=== PATIENT | male | born 1960 | race Caucasian/White ===

== ENCOUNTER 2017-02-14 10:04 | Day surgery (SDC) | payer MEDICAID ==
[~2017-02-14 10:04] MED LIST: Metoclopramide 10 MG/2 ML SDV IV PRN; Sodium Chloride 0.9% 1,000 ML IV SCH; Sodium Chloride 0.9% 10 ML Syringe FLUSH PRN
[2017-02-14] MEDS ORDERED: Propofol 200 MG/20 ML SDV ONE (12:45)
[2017-02-14] MEDS ORDERED: Glucagon,Human Recombinant 1 MG Vial ONE (12:45)
[2017-02-14 13:44] VITALS: BP 124/89
--- NOTE | 2017-02-14 20:04 | OR ---
DATE OF OPERATION: 02/14/2017 PREOPERATIVE DIAGNOSIS: Elevated CEA, prior history of colorectal cancer resection. POSTOPERATIVE DIAGNOSES: 1. Transverse colon polyp. 2. Descending colon polyp. 3. Otherwise normal colonoscopy. OPERATION AND SURVEILLANCE: Colonoscopy with snare polypectomy x2. COMPLICATIONS: None. DRAINS: None. SPECIMENS: 1. Transverse colon polyp. 2. Descending colon polyp. ESTIMATED BLOOD LOSS: Minimal. ANESTHESIA: General propofol anesthesia. INDICATION: Mr. Marquis is a 56-year-old gentleman with a prior history of colon cancer resection. He is being followed by yearly surveillance colonoscopy, and he has had a recent elevation in his CEA. CT scan was normal. The above-mentioned procedure was explained. The risks, benefits, complications were explained. The patient understood and agreed, was brought to the operating room. DESCRIPTION OF PROCEDURE: The patient was brought to the operating room, placed in a left lateral decubitus position on the operating room table. Satisfactory general propofol anesthesia was administered. We began by performing a rectal examination, which was within normal limits. I then placed the endoscope by finger introduction into the rectum and subsequently advanced to the level of the cecum. The cecum was identified by the ileocecal valve, the appendiceal orifice as well as the cecal strap. Careful evaluation of the colon was then carried on the withdrawal. In the proximal to mid transverse colon, there was a large sessile polyp, which was removed by cold snare polypectomy. This was a firm appearing by polypoid in nature and was removed in a piecemeal fashion. The fragments were then all suctioned up and completely retrieved, and passed off the permanent histology. Hemostasis appeared satisfactory. Next, careful evaluation of the remainder of the colon revealed a small single nodular appearing semi-pedunculated polyp in the descending colon. This was removed by snare polypectomy and also retrieved in its entirety and passed off for permanent histology. The remainder of the colon was within normal limits. There were no obvious growths, no telangiectasias or diverticula identified. Retroflexion in the rectum revealed no significant abnormalities. Next, the colon was decompressed and the endoscope was withdrawn. The patient tolerated procedure well. There were no complications. Instrument count was correct. LETY /[id number]
== END 2017-02-14 14:05 | disposition home or self-care (01) ==
LOC: LB.SDS 10:04
PROVIDERS: ATTEND Surgery
DX: D12.3 Benign neoplasm of transverse colon (principal); D12.6 Benign neoplasm of colon, unspecified; Z88.8 Allergy status to other drugs, medicaments and biological substances; Z79.899 Other long term (current) drug therapy; Z91.018 Allergy to other foods
CPT/HCPCS: 45385; J1610; J2704; J7040; 88305

== ENCOUNTER 2017-10-11 16:50 | Emergency (ER) | payer MEDICAID ==
[2017-10-11] MEDS ORDERED: LORazepam 2 MG/ML MDV IM ONE (17:23)
[2017-10-11] MEDS ORDERED: LORazepam 2 MG/ML MDV ONE (17:27)
--- NOTE | 2017-10-11 17:29 | EDM.PDOC ---
ED HPI GENERAL MEDICAL PROBLEM - General Chief Complaint: General Stated Complaint: light headed dizzy Time Seen by Provider: 10/11/17 17:00 Source of Information: Reports: Patient History Limitations: Reports: No Limitations - History of Present Illness INITIAL COMMENTS - FREE TEXT/NARRATIVE: Pt claims that he has been feeling his heart pounding and beating fast since 2 PM today and since has not stopped. It came on suddenly. he claims he feels lightheaded at times. No nausea or vomiting. No chest pain or shortness of breath. No syncope or LOC. Pt claims he still feels like his heart is pounding in the emergency room. He appears very anxious. Pt claims that he quit all his medications since May of 2017 because he just wanted to go off all his medications. he just started it back since last fiday, and today he started feeling lightheaded and racing heart. Declines any use of street drugs. But did drink a lot last night and has been smoking. Onset: Today Onset Date: 10/11/17 Onset Time: 14:00 - Related Data Allergies Allergy/AdvReac Type Severity Reaction Status Date / Time famciclovir [From Famvir] Allergy Shortness Verified 12/10/15 20:11 of Breath ibuprofen [From Motrin] Allergy Shortness Verified 12/10/15 20:11 of Breath Home Meds: Home Meds Mirtazapine 45 mg PO BEDTIME 12/10/15 [History] traMADol HCl [Tramadol HCl] 50 mg PO QID 12/10/15 [History] Hydrochlorothiazide [Hydrochlorothiazide] 12.5 mg PO DAILY 10/11/17 [History] Lisinopril [Lisinopril] 10 mg PO DAILY 10/11/17 [History] Omeprazole [Omeprazole] 20 mg PO DAILY 10/11/17 [History] Past Medical History Cardiovascular History: Reports: Hypertension, NE, Stents Gastrointestinal History: Reports: Other (See Below) Other Gastrointestinal History: Rectal Ca with surgery 2011 Musculoskeletal History: Reports: Arthritis, Back Pain, Chronic Neurological History: Reports: Concussion Psychiatric History: Reports: Anxiety, Bipolar, Depression, Psych Hospitalization(s), Suicidal Ideation Endocrine/Metabolic History: Reports: Diabetes, Type II, Obesity/BMI 30+ Oncologic (Cancer) History: Reports: Colon, Other (See Below) Other Oncologic History: rectal CA - Infectious Disease History Infectious Disease History: Reports: Chicken Pox, Mumps - Past Surgical History Cardiovascular Surgical History: Reports: Carotid Stents GI Surgical History: Reports: Colonoscopy, Hernia, Abdominal Social & Family History - Family History Family Medical History: Noncontributory Cardiac: Reports: NE GI: Reports: Other (See Below) Other GI Family History: Colon Cancer Endocrine/Metabolic: Reports: Diabetes, type II Immunologic: Reports: None Oncologic: Reports: Colon - Tobacco Use Smoking Status *Q: Current Every Day Smoker Years of Tobacco use: 30 Packs/Tins Daily: 1 - Caffeine Use Caffeine Use: Reports: Coffee Caffeine Use Comment: 4-6 cups a day - Alcohol Use Days Per Week of Alcohol Use: 1 Number of Drinks Per Day: 1 Total Drinks Per Week: 1 - Recreational Drug Use Recreational Drug Use: No ED ROS GENERAL - Review of Systems Review Of Systems: See Below Constitutional: Denies: Fever, Chills, Malaise, Weakness, Fatigue, Diaphoresis HEENT: Denies: Contact Lenses, Sinus Problem, Throat Pain, Throat Swelling Respiratory: Denies: Shortness of Breath, Wheezing, Pleuritic Chest Pain, Cough , Sputum Cardiovascular: Reports: Lightheadedness. Denies: Chest Pain, Dyspnea on Exertion, Edema Endocrine: Denies: Fatigue, High Glucose GI/Abdominal: Denies: Anorexia, Melena, Nausea, Vomiting : Denies: Dysuria, Flank Pain Skin: Denies: Pruritis, Rash Neurological: Denies: Dizziness, Headache, Numbness, Paresthesia, Seizure, Syncope, Tingling, Tremors Psychiatric: Reports: Anxiety, Depression ED EXAM, GENERAL - Physical Exam Exam: See Below Exam Limited By: No Limitations General Appearance: Alert, WD/WN, No Apparent Distress, Anxious, Other (Pt is hyperventilating and keep claiming that his heart is racing, but his heart rate on monitor and palpation is around 70-80s) Ears: Normal External Exam, Normal Canal, Hearing Grossly Normal, Normal TMs Ear Exam: Bilateral Ear: TM normal, Tenderness Nose: Normal Inspection, Normal Mucosa, No Blood Throat/Mouth: Normal Inspection, Normal Lips, Normal Teeth, Normal Gums, Normal Oropharynx, Normal Voice, No Airway Compromise Head: Atraumatic, Normocephalic Neck: Normal Inspection, Supple, Non-Tender, Full Range of Motion Respiratory/Chest: No Respiratory Distress, Lungs Clear, Normal Breath Sounds, No Accessory Muscle Use, Chest Non-Tender Cardiovascular: Normal Peripheral Pulses, Regular Rate, Rhythm, No Edema, No Gallop, No JVD, No Murmur, No Rub Extremities: Normal Inspection, Normal Range of Motion, Non-Tender, Normal Capillary Refill, No Pedal Edema Neurological: Alert, Oriented, CN II-XII Intact, Normal Cognition, Normal Gait, Normal Reflexes, No Motor/Sensory Deficits Psychiatric: Anxious EKG INTERPRETATION EKG Date: 10/11/17 Rhythm: NSR Rate (Beats/Min): 73 [place]: Normal P-Wave: Present QRS: Normal ST-T: Normal Course - Vital Signs Text/Narrative:: Pt is anxious and he is hyperventilating. he keep claiming that his heart is racing even when his palpable heart rate is in 70s-80s and regular. His BP today is 128/78mmhg which is normal. He does not have any other asso symptoms. His EKG is in normal sinus rhythm with heart rate of 73/min. CBC is normal and troponin is negative. His CMP shows sodium of 130 and Chlorides of 90, rest of the lab work is normal. His clinical exam and neuro exam is normal.Pt does appear very anxious, and he does have history of anxiety and depression. He has quit all his medications and has just restarted them in the past 4-5 days. I have advised patient to stop his HCTZ completely, as this is a new drug stated 5 days ago. He claims he has been urinating a lot and not felt well since he started it. He has mild hyponatremia, which might correct with stopping his HCTZ. I have advised patient high salt diet for 5-7 days. Followup in clinic on Monday for recheck - Orders/Labs/Meds Orders: Active Orders 24 hr Category Date Time Status EKG Documentation Completion [RC] ASDIRECTED Care 10/11/17 17:08 Active COMPREHENSIVE METABOLIC PN,CMP [CHEM] Stat Lab 10/11/17 17:24 Received TROPONIN I [CHEM] Stat Lab 10/11/17 17:20 Received Labs: Laboratory Tests 10/11/17 Range/Units 17:24 WBC 9.0 (4.0-11.0) K/uL RBC 4.84 (4.50-6.50) M/uL Hgb 15.6 (13.0-18.0) g/dL Hct 43.2 (40.0-54.0) % MCV 89 (76-96) fL MCH 32.2 H (27.0-32.0) pg MCHC 36.1 H (31.0-35.0) g/dL RDW 13.7 (11.0-16.0) % Plt Count 291 (150-400) K/uL MPV 9.8 (6.0-10.0) fL Neut % (Auto) 67.8 (45.0-70.0) % Lymph % (Auto) 18.0 L (20.0-40.0) % [place] % (Auto) 13.4 H (3.0-10.0) % Eos % (Auto) 0.2 L (1.0-5.0) % Baso % (Auto) 0.6 H (0.0-0.5) % Neut # (Auto) 6.08 (2.00-7.50) K/uL Lymph # (Auto) 1.61 (1.50-4.00) K/uL [place] # (Auto) 1.20 H (0.20-0.80) K/uL Eos # (Auto) 0.02 L (0.04-0.40) K/uL Baso # (Auto) 0.05 (0.02-0.10) K/uL Meds: Medications Discontinued Medications Generic Name Dose Route Start Last Admin Trade Name Freq PRN Reason Stop Dose Admin Lorazepam 1 mg 10/11/17 17:23 10/11/17 17:26 Ativan IM 10/11/17 17:24 1 mg ONETIME ONE Administration Lorazepam Confirm 10/11/17 17:27 Ativan Administered 10/11/17 17:28 Dose 2 mg .ROUTE .STK-MED ONE Departure - Departure Time of Disposition: 18:00 Disposition: Home, Self-Care 01 Condition: Good Clinical Impression: Hyponatremia, Anxiety - Discharge Information Referrals: PCP,None [Primary Care Provider] - Forms: ED Department Discharge Additional Instructions: Pt is anxious and he is hyperventilating. he keep claiming that his heart is racing even when his palpable heart rate is in 70s-80s and regular. His BP today is 128/78mmhg which is normal. He does not have any other asso symptoms. His EKG is in normal sinus rhythm with heart rate of 73/min. CBC is normal and troponin is negative. His CMP shows sodium of 130 and Chlorides of 90, rest of the lab work is normal. His clinical exam and neuro exam is normal.Pt does appear very anxious, and he does have history of anxiety and depression. He has quit all his medications and has just restarted them in the past 4-5 days. I have advised patient to stop his HCTZ completely, as this is a new drug stated 5 days ago. He claims he has been urinating a lot and not felt well since he started it. He has mild hyponatremia, which might correct with stopping his HCTZ. I have advised patient high salt diet for 5-7 days. Followup in clinic on Monday for recheck - Problem List & Annotations (1) Anxiety SNOMED Code(s): 30086687 Code(s): F41.9 - ANXIETY DISORDER, UNSPECIFIED Status: Acute Current Visit: Yes (2) Hyponatremia SNOMED Code(s): 28594213 Code(s): E87.1 - HYPO-OSMOLALITY AND HYPONATREMIA Status: Acute Current Visit: Yes - Problem List Review Problem List Initiated/Reviewed/Updated: Yes - My Orders Last 24 Hours: My Active Orders 10/11/17 17:08 EKG Documentation Completion [RC] ASDIRECTED 10/11/17 17:20 TROPONIN I [CHEM] Stat 10/11/17 17:24 COMPREHENSIVE METABOLIC PN,CMP [CHEM] Stat - Assessment/Plan Last 24 Hours: My Active Orders 10/11/17 17:08 EKG Documentation Completion [RC] ASDIRECTED 10/11/17 17:20 TROPONIN I [CHEM] Stat 10/11/17 17:24 COMPREHENSIVE METABOLIC PN,CMP [CHEM] Stat Assessment:: Anxiety with hyponatremia Plan: Pt is anxious and he is hyperventilating. he keep claiming that his heart is racing even when his palpable heart rate is in 70s-80s and regular. His BP today is 128/78mmhg which is normal. He does not have any other asso symptoms. His EKG is in normal sinus rhythm with heart rate of 73/min. CBC is normal and troponin is negative. His CMP shows sodium of 130 and Chlorides of 90, rest of the lab work is normal. His clinical exam and neuro exam is normal.Pt does appear very anxious, and he does have history of anxiety and depression. He has quit all his medications and has just restarted them in the past 4-5 days. I have advised patient to stop his HCTZ completely, as this is a new drug stated 5 days ago. He claims he has been urinating a lot and not felt well since he started it. He has mild hyponatremia, which might correct with stopping his HCTZ. I have advised patient high salt diet for 5-7 days. Followup in clinic on Monday for recheck
[2017-10-11 18:12] VITALS: BP 151/80
== END 2017-10-11 18:10 | disposition home or self-care (01) ==
LOC: LB.ED 16:50
DX: F41.9 Anxiety disorder, unspecified (principal); E87.1 Hypo-osmolality and hyponatremia; I10 Essential (primary) hypertension; E11.9 Type 2 diabetes mellitus without complications; F17.210 Nicotine dependence, cigarettes, uncomplicated; F31.9 Bipolar disorder, unspecified; Z79.899 Other long term (current) drug therapy; Z88.6 Allergy status to analgesic agent; Z88.8 Allergy status to other drugs, medicaments and biological substances
CPT/HCPCS: 36415; 80053; 84484; 85025; 93005; 96372; 99284; J2060; 99285

== ENCOUNTER 2018-04-19 08:42 | Day surgery (SDC) | payer MEDICAID ==
[2018-04-19] MEDS: Sodium Chloride 0.9% 1,000 ML IV SCH (09:29)
[2018-04-19] MEDS ORDERED: Propofol 1,000 MG/100 ML SDV ONE (11:15)
--- NOTE | 2018-04-19 12:52 | OR ---
DATE OF OPERATION: 04/19/2018 PREOPERATIVE DIAGNOSIS: History of rectal cancer. POSTOPERATIVE DIAGNOSIS: History of rectal cancer. PROCEDURE: Colonoscopy with polypectomy. ANESTHESIA: MAC. ESTIMATED BLOOD LOSS: Minimal. COMPLICATIONS: None. INDICATION FOR THE PROCEDURE: The patient is a 57-year-old male, who six years ago, had surgery for rectal cancer. The patient continues to have high CEA levels. He did have a colonoscopy last year and was found to have several polyps. The patient is back again today due to persistently high CEA levels, otherwise, denies any additional change in bowel habits. DESCRIPTION OF PROCEDURE: Informed consent was obtained from the patient. The patient was taken to the operating room and placed on the table in the left lateral decubitus position. Monitored anesthesia care was administered. Digital rectal exam was normal. Colonoscope was then advanced through the anus directed towards the cecum. Cecum was identified by appendiceal orifice as well as the ileocecal valve. Colonoscope was then slowly withdrawn. The patient did have 2 small sessile polyps, 1 in the transverse colon and 1 in the sigmoid colon. Both of these were removed with hot biopsy polypectomy. Retroflexion was performed and the rectum was unremarkable. Previous anastomosis was well-healed. No strictures. Colonoscope was then withdrawn. The patient tolerated the procedure well and was brought to the recovery room in good condition. FINDINGS: Colon polyps x2. RECOMMENDATIONS: We would recommend repeat screening colonoscopy in 3 years. He continues to have persistently elevated CEA. We would defer to Medical Oncology if they prefer repeat screening in 1 year. EVELYN /[id number]
[2018-04-19 13:01] VITALS: BP 145/97
== END 2018-04-19 12:57 | disposition home or self-care (01) ==
LOC: LB.SDS 08:42
PROVIDERS: ATTEND Surgery
DX: R97.0 Elevated carcinoembryonic antigen [CEA] (principal); D12.3 Benign neoplasm of transverse colon; D12.5 Benign neoplasm of sigmoid colon; I10 Essential (primary) hypertension; F17.200 Nicotine dependence, unspecified, uncomplicated; E78.00 Pure hypercholesterolemia, unspecified; Z85.048 Personal history of other malignant neoplasm of rectum, rectosigmoid junction, and anus; Z86.010 Personal history of colon polyps; Z79.899 Other long term (current) drug therapy; Z90.49 Acquired absence of other specified parts of digestive tract; Z88.6 Allergy status to analgesic agent
CPT/HCPCS: 88305; J3490; J7030

== ENCOUNTER 2018-04-24 14:13 | Emergency (ER) | payer MEDICAID ==
--- NOTE | 2018-04-24 21:31 | ER ---
DATE OF SERVICE: 04/24/2018 HISTORY OF PRESENT ILLNESS: A 57-year-old male here for recheck involving left shoulder pain. He states that he fell 2 weeks ago landing on the left shoulder. He did come in for evaluation. X-rays were taken which were negative. He does take tramadol for other aches and pains. He has been using it for this as well. He states that he is feeling better. So, the last evening, he decided to do some lawn mowing and his shoulder has been severely painful since. He is pointing to the lateral superior aspect of the shoulder as well as radiating down over the deltoid muscle area. The patient denies any new injuries. OBJECTIVE: GENERAL APPEARANCE: The patient is awake and alert. He is holding his left arm with his right hand in a guarded fashion. VITAL SIGNS: Reviewed as listed. MUSCULOSKELETAL: Examining the patient's left shoulder reveals the skin is intact. There is significant pain over the rotator cuff muscle area radiating into the deltoid muscle and the glenohumeral joint is tender as well on the anterior aspect. The patient has minimal movement today due to pain. He cannot perform the drop-arm test with lateral abduction or even much forward rotation. DIAGNOSIS: Shoulder pain ongoing, getting worse recently after an injury 2 weeks ago. TREATMENT PLAN: I did review the patient's previous x-ray and the radiologist report is negative for fracture. At this point, the patient will be put in a sling. I will give him 1 [place] tablet here in the emergency room and the patient states he is in the process of refilling his Ultram which has been helping him, but he has been out of it for a couple of days. I advised patient to use ice packs frequently. The patient will need an MRI of the shoulder. He has an appointment tomorrow in the clinic and I found out from nursing staff that the MRI would not be available to be done until next Monday. He can have the MRI scheduled when he sees his primary care provider tomorrow in the clinic. JIM/MAX /[id number] MALIHA
== END 2018-04-24 14:31 | disposition home or self-care (01) ==
LOC: LB.ED 14:13
DX: M25.512 Pain in left shoulder (principal)
CPT/HCPCS: 99283

== ENCOUNTER 2019-03-14 07:22 | Day surgery (SDC) | payer MEDICAID ==
[~2019-03-14 07:22] MED LIST changes: -Sodium Chloride 0.9% 10 ML Syringe FLUSH PRN
[2019-03-14] MEDS ORDERED: Propofol 200 MG/20 ML SDV ONE (09:45)
[2019-03-14 10:28] VITALS: BP 116/73
--- NOTE | 2019-03-14 14:58 | OR ---
DATE OF OPERATION: 03/14/2019 PREOPERATIVE DIAGNOSIS: History of rectal cancer. POSTOPERATIVE DIAGNOSIS: History of rectal cancer. PROCEDURE: Colonoscopy with polypectomy x5. ANESTHESIA: MAC. ESTIMATED BLOOD LOSS: Minimal. COMPLICATIONS: None. INDICATION FOR THE PROCEDURE: The patient is a 58-year-old male who has previously had a history of rectal cancer. The patient is here today for surveillance colonoscopy. Last colonoscopy was a year ago and finding to have small sessile polyps. His CEA level continues to rise. He is here today for surveillance colonoscopy. DESCRIPTION OF PROCEDURE: Informed consent was obtained from the patient. The patient was taken to the operating room and placed on the table in left lateral decubitus position. Monitored anesthesia care was administered. Digital rectal exam performed and was normal. Colonoscope then advanced through the anus directed toward the cecum. Cecum was reached and identified by te-moak's feet as well as ileocecal valve. Colonoscope then slowly withdrawn. A small sessile polyp found in the very proximal ascending colon removed with cold forceps polypectomy. Second small sessile polyp removed from the splenic flexure with hot biopsy polypectomy. Additional small sessile polyp removed from the descending colon with hot biopsy polypectomy. A fourth small sigmoid polyp removed with hot biopsy polypectomy, and an additional small sessile polyp noticed in the rectum also removed by hot biopsy polypectomy. Anastomosis in the rectum was open, healthy, and appeared normal. The remainder of the rectum appeared normal. No signs of any recurrent disease. Colonoscope was then withdrawn at the end of the case. The patient tolerated the procedure well and was brought to recovery room in good condition. FINDINGS: Five small sessile polyps removed. RECOMMENDATIONS: Would recommend repeat surveillance colonoscopy in 1 year due to his personal history of cancer as well as elevated CEA levels as well as 5 polyps removed today. PETER/MAX /[id number]
== END 2019-03-14 11:15 | disposition home or self-care (01) ==
LOC: LB.SDS 07:22
PROVIDERS: ATTEND Surgery
DX: Z08 Encounter for follow-up examination after completed treatment for malignant neoplasm (principal); D12.2 Benign neoplasm of ascending colon; D12.4 Benign neoplasm of descending colon; D12.5 Benign neoplasm of sigmoid colon; D12.3 Benign neoplasm of transverse colon; D12.8 Benign neoplasm of rectum; R97.0 Elevated carcinoembryonic antigen [CEA]; I10 Essential (primary) hypertension; I25.2 Old myocardial infarction; F31.9 Bipolar disorder, unspecified; Z86.010 Personal history of colon polyps; Z85.048 Personal history of other malignant neoplasm of rectum, rectosigmoid junction, and anus
CPT/HCPCS: 45380; 45384; 88305; J2704; J7030

== ENCOUNTER → 2019-09-12 | Outpatient (CLI) | payer MEDICAID ==
[~2019-09-12] MED LIST changes: +Diatrizoate Meglumine/Diatrizoate Sodium 37% 30 ML Bottle PO SCH; +Iodixanol 652 MG/ML 100 ML Bottle IV SCH; -Metoclopramide 10 MG/2 ML SDV IV PRN; -Sodium Chloride 0.9% 1,000 ML IV SCH; +Sodium Chloride 0.9% 10 ML Syringe FLUSH PRN; +Sodium Chloride 0.9% 50 ML SDV FLUSH ONE
--- NOTE | 2019-09-15 16:22 | CRLCT ---
DATE OF SERVICE: 09/12/19 CLINICAL DATA: RECTAL CANCER ENHANCED CHEST CT: Multi slice acquisition through the chest with IV contrast was performed. No priors. There are minimal atelectatic changes in the dependent portions of both lungs. The lungs are otherwise clear. No pulmonary nodules or mass. No pneumothorax. No pleural effusions. The heart size is normal. No pericardial effusion. No aortic aneurysm or dissection. No hilar or mediastinal adenopathy. There is mild degenerative disc disease throughout the thoracic spine. No lytic or blastic bone lesions. ENHANCED ABDOMEN AND PELVIC CT: Multislice acquisition through the abdomen and pelvis with IV and oral contrast was performed. Comparison is made to a prior exam dated 03/27/19. The liver is normal size. There are multiple fluid density lesions within the liver. The largest is within the right lobe and measures 2.6 cm in diameter. They are unchanged in size and number from the prior exam. They are consistent with multiple benign hepatic cysts. No new hepatic lesions. The gallbladder appears normal. No biliary duct dilatation. There is mural thickening within the fundus and body of the stomach. This is probably related to nondistention. Gastritis or an infiltrating process should be considered. The spleen is absent. The pancreas appears normal. The right and left adrenals appear normal. The right and left kidneys enhance symmetrically. There are subcentimeter low density lesions in the periphery of both kidneys consistent with small renal cysts. The right and left kidneys otherwise appear normal. No hydronephrosis or hydroureter. The bladder is partially fluid filled. The bladder wall does appear to be mildly thickened. This probably related to nondistention. Cystitis should be considered. The prostate is mildly enlarged, unchanged from the prior study. Mild diverticulosis. There is mild mural thickening throughout the sigmoid colon and rectum. This is probably related to nondistention. No free air. No free fluid. No dilated loops of bowel. No adenopathy. No aortic aneurysm or dissection. There is an umbilical hernia containing fat. There is a left inguinal hernia containing fat. There is degenerative disc disease throughout the lumbar spine. No lytic or blastic bone lesions. [id number]
== END ==
LOC: LB.CT 12:38
PROVIDERS: ATTEND Internal Medicine
DX: C20 Malignant neoplasm of rectum (principal); K76.89 Other specified diseases of liver; J98.11 Atelectasis; M51.34 Other intervertebral disc degeneration, thoracic region; K31.89 Other diseases of stomach and duodenum; N40.0 Benign prostatic hyperplasia without lower urinary tract symptoms; N28.89 Other specified disorders of kidney and ureter; N32.89 Other specified disorders of bladder; K57.30 Diverticulosis of large intestine without perforation or abscess without bleeding; K63.89 Other specified diseases of intestine; K40.90 Unilateral inguinal hernia, without obstruction or gangrene, not specified as recurrent
CPT/HCPCS: 71260; 74177; Q9963

== ENCOUNTER 2019-10-18 08:51 | Day surgery (SDC) | payer MEDICAID ==
[2019-10-18] MEDS: Sodium Chloride 0.9% 1,000 ML IV SCH (09:13)
[2019-10-18] MEDS ORDERED: Glycopyrrolate 0.2 MG/ML 2 ML SDV ONE (10:45)
[2019-10-18] MEDS ORDERED: Benzocaine/Butamben/Tetracaine Top Spray 56 GM Canister ONE (10:45)
[2019-10-18] MEDS ORDERED: Midazolam 1 MG/ML 2 ML SDV ONE (10:45)
[2019-10-18] MEDS ORDERED: Propofol 1,000 MG/100 ML SDV ONE (10:45)
[2019-10-18 11:14] VITALS: PULSE 70
--- NOTE | 2019-10-18 11:21 | OR ---
DATE OF OPERATION: 10/18/2019 SURGEON: Conner Leone MD PREOPERATIVE DIAGNOSIS: History of colon cancer and elevated CEA. POSTOPERATIVE DIAGNOSIS: History of colon cancer and elevated CEA. PROCEDURE: Esophagogastroduodenoscopy. ANESTHESIA: MAC. ESTIMATED BLOOD LOSS: None. COMPLICATIONS: None. INDICATION FOR THE PROCEDURE: The patient is a 59-year-old male with previous history of colon cancer. He continues to have elevated CEA, recently had a colonoscopy less than a year ago, which did not show any recurrence of cancer. He otherwise denies any epigastric or abdominal pain. He is here today for EGD. DESCRIPTION OF PROCEDURE: Informed consent was obtained from the patient. The patient was taken to the operating room and placed on the table in left lateral decubitus position. Monitored anesthesia care was administered. Esophagogastroscope then advanced through the mouth and down the level of the duodenum. He did have some mild duodenitis. No ulcers present. The gastric antrum was unremarkable. No ulcers and no inflammation. Retroflexion performed in the stomach showing no masses in the body or cardia of the stomach, did have a small hiatal hernia. Otherwise, the distal esophagus showing no signs of esophagitis. Remainder of the esophagus was also normal. Esophagogastroscope then was removed. FINDINGS: Minimal to mild duodenitis and small hiatal hernia. RECOMMENDATIONS: Would recommend continued clinical monitoring of his elevated CEA levels. If he does develop any epigastric pain, would recommend PPI therapy. PETER/MAX /[id number]
[2019-10-18 12:57] VITALS: BP 151/80
== END 2019-10-18 12:50 | disposition home or self-care (01) ==
LOC: LB.SDS 08:51
PROVIDERS: ATTEND Surgery
DX: R97.0 Elevated carcinoembryonic antigen [CEA] (principal); K29.80 Duodenitis without bleeding; K44.9 Diaphragmatic hernia without obstruction or gangrene; Z85.038 Personal history of other malignant neoplasm of large intestine
CPT/HCPCS: 43235; 43246; J2250; J2704; J3490; J7030

== ENCOUNTER 2020-05-01 10:43 | Day surgery (SDC) | payer MEDICAID ==
[~2020-05-01 10:43] MED LIST changes: -Diatrizoate Meglumine/Diatrizoate Sodium 37% 30 ML Bottle PO SCH; -Iodixanol 652 MG/ML 100 ML Bottle IV SCH; +Metoclopramide 10 MG/2 ML SDV IV PRN; +Sodium Chloride 0.9% 1,000 ML IV SCH; -Sodium Chloride 0.9% 10 ML Syringe FLUSH PRN; -Sodium Chloride 0.9% 50 ML SDV FLUSH ONE
[2020-05-01] MEDS ORDERED: Propofol 1,000 MG/100 ML SDV ONE (13:40)
[2020-05-01 14:04] VITALS: BP 135/101; PULSE 64
--- NOTE | 2020-05-01 17:53 | OR ---
DATE OF OPERATION: 05/01/2020 SURGEON: Conner Leone MD PREOPERATIVE DIAGNOSES: History of rectal cancer and polyps. POSTOPERATIVE DIAGNOSES: History of rectal cancer and polyps. PROCEDURE: Colonoscopy with polypectomy. ANESTHESIA: MAC. ESTIMATED BLOOD LOSS: Minimal. COMPLICATIONS: None. INDICATION FOR THE PROCEDURE: The patient is a 59-year-old male with previous history of rectal cancer. He has been having yearly colonoscopies, was noted to have an elevated CEA last year and was brought back to the OR today for colonoscopy after 1 year. DESCRIPTION OF PROCEDURE: Informed consent was obtained from the patient. The patient was taken to the operating room, placed on table in left lateral decubitus position. Monitored anesthesia care was administered. Digital rectal exam was performed, it was normal. Colonoscope was then advanced through the anus, directed towards the cecum. Cecum was reached and identified by appendiceal orifice and ileocecal valve. Colonoscope was then slowly withdrawn. He did have a small sessile polyp in the proximal descending colon. This was removed with hot forceps polypectomy. Blood loss was minimal. Circular anastomosis noted in the rectum was widely patent. No signs of recurrence. Colonoscope was then withdrawn. FINDINGS: Patent rectal anastomosis as well as colon polyp. RECOMMENDATIONS: We will defer to PCP in Oncology regarding followup at this point as I do not have all his records, but at a minimum, would recommend followup in 5 years for repeat colonoscopy. PETER/MAX /[id number]
== END 2020-05-01 15:02 | disposition home or self-care (01) ==
LOC: LB.SDS 10:43
PROVIDERS: ATTEND Surgery
DX: Z12.11 Encounter for screening for malignant neoplasm of colon (principal); D12.4 Benign neoplasm of descending colon; K63.89 Other specified diseases of intestine; F41.9 Anxiety disorder, unspecified; F17.200 Nicotine dependence, unspecified, uncomplicated; Z85.048 Personal history of other malignant neoplasm of rectum, rectosigmoid junction, and anus; Z88.8 Allergy status to other drugs, medicaments and biological substances; Z88.6 Allergy status to analgesic agent; Z98.890 Other specified postprocedural states
CPT/HCPCS: 45384; 88305; G0121; J2704; J7030; U0002

== ENCOUNTER 2024-09-19 10:53 | Day surgery (SDC) | payer MEDICAID ==
[2024-09-19] MEDS ORDERED: Propofol 200 MG/20 ML SDV ONE (14:00)
[2024-09-19 15:11] VITALS: BP 140/82; PULSE 55
== END 2024-09-19 15:01 | disposition home or self-care (01) ==
LOC: LB.SDS 10:53
PROVIDERS: ATTEND Surgery
DX: Z12.11 Encounter for screening for malignant neoplasm of colon (principal); D12.5 Benign neoplasm of sigmoid colon; I10 Essential (primary) hypertension; F32.A Depression, unspecified; E78.00 Pure hypercholesterolemia, unspecified; Z79.899 Other long term (current) drug therapy; Z85.048 Personal history of other malignant neoplasm of rectum, rectosigmoid junction, and anus
CPT/HCPCS: 88305; J2704

== ENCOUNTER 2024-11-21 04:02 | Emergency (ER) | payer MEDICAID ==
[2024-11-21] MEDS: Aspirin 81 MG Tab.Chew PO ONE (04:30)
[2024-11-21] MEDS: Nitroglycerin 0.4 MG Tab.SL SL PRN (04:31)
[2024-11-21] MEDS: Morphine 2 MG/ML SYRINGE IVPUSH PRN (04:44)
[2024-11-21] MEDS: Ondansetron 4 MG Tab.DIS PO ONE (04:44)
[2024-11-21 05:21] LABS: BASOPHILS ABSOLUTE AUTO 0.05 K/uL (0.02-0.10); BASOPHILS PERCENT AUTO 0.5 % (0.0-0.5); EOSINOPHILS ABSOLUTE AUTO 0.33 K/uL (0.04-0.40); EOSINOPHILS PERCENT AUTO 3.6 % (1.0-5.0); HEMATOCRIT 42.8 % (40.0-54.0); HEMOGLOBIN 14.9 g/dL (13.0-18.0); LYMPHOCYTES ABSOLUTE AUTO 2.37 K/uL (1.50-4.00); LYMPHOCYTES PERCENT AUTO 25.6 % (20.0-40.0); MEAN CORPUSCULAR HEMOGLOBIN 31.9 pg (27.0-32.0); MEAN CORPUSCULAR HGB CONC 34.8 g/dL (31.0-35.0); MEAN CORPUSCULAR VOLUME 92 fL (76-96); MEAN PLATELET VOLUME 10.5 fL (6.0-10.0); MONOCYTES ABSOLUTE AUTO 0.98 K/uL (0.20-0.80); MONOCYTES PERCENT AUTO 10.6 % (3.0-10.0); NEUTROPHILS ABSOLUTE AUTO 5.51 K/uL (2.00-7.50); NEUTROPHILS PERCENT AUTO 59.7 % (45.0-70.0); PLATELET COUNT,PLT 296 K/uL (150-400); RED BLOOD CELL COUNT 4.67 M/uL (4.50-6.50); RED CELL DISTRIBUTION WIDTH 14.4 % (11.0-16.0); WHITE BLOOD CELL COUNT,WBC 9.2 K/uL (4.0-11.0)
[2024-11-21 05:31] LABS: PTT,PARTIAL THROMBOPLSTIN TIME 28.1 SECONDS (24.4-33.2)
[2024-11-21 05:33] LABS: PROTHROMBIN TIME 10.5 sec (9.0-11.5)
[2024-11-21 05:36] LABS: ANION GAP 14.1 mmol/L (5.0-15.0); CARBON DIOXIDE,CO2 28.1 mmol/L (21.0-32.0); CREATININE 0.9 mg/dL (0.70-1.30); EST CRCL DRUG DOSING (CG) 86.74 mL/min; MAGNESIUM 1.7 mg/dL (1.8-2.4); POTASSIUM,K 4.2 mmol/L (3.5-5.1); TROPONIN I HIGH SENSITIVITY 43.1 pg/ml (<=60.4)
[2024-11-21 09:48] VITALS: BP 146/82; PULSE 52
== END 2024-11-21 08:07 | disposition home or self-care (01) ==
LOC: LB.ED 04:02
DX: R07.89 Other chest pain (principal); I10 Essential (primary) hypertension; E11.9 Type 2 diabetes mellitus without complications; E66.9 Obesity, unspecified; Z68.25 Body mass index [BMI] 25.0-25.9, adult; Z96.659 Presence of unspecified artificial knee joint; Z88.8 Allergy status to other drugs, medicaments and biological substances; Z88.6 Allergy status to analgesic agent; Z91.011 Allergy to milk products; Z91.018 Allergy to other foods; Z79.899 Other long term (current) drug therapy
CPT/HCPCS: 36415; 80048; 83735; 84484; 85025; 85610; 85730; 93005; 96365; 96375; 99285-25; A9270-GY; J2270; J3475; Q0162